=== PATIENT | female | born 1985 | race Caucasian/White ===

== ENCOUNTER → 2017-02-07 | Outpatient (CLI) | payer BC ==
[~2017-02-07] MED LIST: EFF75 PO; ETAN50IN2 SQ; LISI10TA PO; MINO100C22 PO; MULT-506 PO; NORT10CA PO; OXYC-57 PO; SPR25 PO
[2017-02-07 18:17] LABS: BASO % 0.9 %; BASO ABS # 0.07 K/uL (0-0.2); COMPLETE YES; EOS % 2.1 %; HEMATOCRIT 43.4 % (37-47); IG% 0.2 %; LYMPH % 36.2 %; LYMPH ABS # 2.93 K/uL (1.2-3.4); MEAN CELL VOLUME 86.5 fL (80-100); MEAN CORPUSCULAR HEMOGLOBIN 28.9 pg (25-34); MEAN CORPUSCULAR HGB CONC 33.4 g/dl (32-36); MEAN PLATELET VOLUME 9.9 fL (7.4-10.4); MONO % 7.9 %; NEUT % 52.7 %; PLATELET COUNT 423 K/uL (130-400); RED BLOOD COUNT 5.02 M/uL (4.2-5.4)
[2017-02-07 19:19] LABS: ALT/SGPT 29 U/L (12-78); AMYLASE 39 U/L (25-115); AST/SGOT 18 U/L (15-37); BLOOD UREA NITROGEN 12 mg/dl (7-18); BUN/CREATININE RATIO 12.5 (10-20); CALCIUM 9.8 mg/dl (8.5-10.1); CARBON DIOXIDE 25 mmol/L (21-32); CHLORIDE 106 mmol/L (98-107); CREATININE 0.95 mg/dl (0.60-1.20); GLUCOSE 91 mg/dl (70-99); POTASSIUM 4.1 mmol/L (3.5-5.1); SODIUM 141 mmol/L (136-145)
[2017-02-07 19:22] LABS: ALB/GLOB RATIO 1.1 (0.9-2); ALKALINE PHOSPHATASE 79 U/L (45-117)
== END | disposition home or self-care (01) ==
LOC: C.LABSPEC 17:28
PROVIDERS: ATTEND Internal Medicine
DX: R52 Pain, unspecified (principal)

== ENCOUNTER → 2017-02-08 | Outpatient (CLI) | payer BC | END | disposition home or self-care (01) | LOC: C.PAPS 09:32 | PROVIDERS: ATTEND Physician Assistant | DX: Z01.419 Encounter for gynecological examination (general) (routine) without abnormal findings (principal) ==

== ENCOUNTER → 2017-02-09 | Outpatient (CLI) | payer BC ==
--- NOTE | 2017-02-09 09:40 | DIAGNOSTIC IMAGING REPORT ---
ADDENDUM Upon further review of the case, the gallbladder is distended and diffusely stone filled with associated posterior acoustic shadowing and gallbladder wall thickening. Sonographic [place] sign was reported as negative. Correlate clinically to exclude acute cholecystitis. Electronically signed by: Bony Thurston M.D. 04/18/2017 2:33 PM Dictated Date/Time: 04/18/2017 2:32 PM ORIGINAL REPORT BILIARY ULTRASOUND CLINICAL HISTORY: Abdominal pain COMPARISON STUDY: No previous studies for comparison. FINDINGS: The pancreas appear normal as visualized. The liver appears sonographically normal. The gallbladder appears sonographically normal. There was no ductal dilatation. The common bile duct measured 5 mm. There is no right-sided hydronephrosis. There is a suspected 6 mm lower pole right renal calculus. IMPRESSION: 6 mm lower pole right renal calculus. Otherwise normal biliary ultrasound. Electronically signed by: Fili Quach M.D. 02/09/2017 9:38 AM Dictated Date/Time: 02/09/2017 9:37 AM
--- NOTE | 2017-04-18 08:38 | [facility] Operative Report ---
Operative Report Operative Date Apr 18, 2017. Pre-Operative Diagnosis biliary dysk Post-Operative Diagnosis ccc Procedure(s) Performed lap braeden attemted c'gram Surgeon Mikaela Mold Hoister Surgeon(s) Yannick Lagunas Estimated Blood Loss 5cc Findings gall bladder full of stones Drains 19 ludmila per stab Indications ruq pain Description of Procedure lap braeden , attempted c'gram OR summary dictated I attest to the content of the Intraoperative Record and any orders documented therein. Any exceptions are noted below.
== END | disposition home or self-care (01) ==
LOC: C.ULTR 09:05
PROVIDERS: ATTEND Internal Medicine
DX: R10.11 Right upper quadrant pain (principal); N20.0 Calculus of kidney

== ENCOUNTER → 2017-03-27 | Outpatient (CLI) | payer BC ==
[~2017-03-27] MED LIST changes: +SINCALIDE IV ONE; +SODIUM CHLORIDE 0.9% IV ONE
--- NOTE | 2017-03-27 10:27 | DIAGNOSTIC IMAGING REPORT ---
NUCLEAR MEDICINE HEPATOBILIARY SCAN WITH EJECTION FRACTION HISTORY: Generalized abdominal pain. COMPARISON: Abdominal ultrasound 02/09/2017 TECHNIQUE: Immediately following the intravenous administration of 5.5 mCi Tc-99m Choletec, dynamic anterior abdominal imaging pre/post 2.4 mcg of Kinevac was performed. FINDINGS: Uniform hepatic tracer accumulation is shown. Prompt intrahepatic biliary excretion is seen. The gallbladder, common bile duct, and small bowel are all visualized by 35 minutes. This appearance represents the normal sequence of biliary excretion. The gall bladder ejection fraction following administration of Kinevac was 18% (normal >35%). IMPRESSION: 1. No evidence for cystic duct obstruction. 2. Abnormally low gallbladder ejection fraction calculated to be 18 %. Electronically signed by: Epifanio Pritchett M.D. 03/27/2017 10:25 AM Dictated Date/Time: 03/27/2017 10:24 AM
== END | disposition home or self-care (01) ==
LOC: C.NUCL 07:38
PROVIDERS: ATTEND Internal Medicine
DX: R10.11 Right upper quadrant pain (principal)

== ENCOUNTER 2017-04-18 05:10 | Day surgery (SDC) | payer BC ==
[2017-04-14 08:30] VITALS: BMI 41.0
--- NOTE | 2017-04-14 08:54 | PAT Medication Instructions ---
Service Date Apr 14, 2017. Current Home Medication List Etanercept (Enbrel), 50 MG SQ WK Lisinopril (Prinivil), 10 MG PO QAM Minocycline (Minocin), 50 MG PO QAM Multivitamin (Multivitamin), 1 TAB PO QAM Nortriptyline Hcl (Pamelor), 10 MG PO BID Spironolactone (Spironolactone), 25 MG PO QAM Venlafaxine Hcl (Effexor), 75 MG PO QAM Medication Instructions For Your Scheduled Surgery - Check with surgeon/body man for instructions: Etanercept (Enbrel), 50 MG SQ WK (on Sundays for psoriasis) - Hold the following medications the morning of surgery: Spironolactone (Spironolactone), 25 MG PO QAM Multivitamin (Multivitamin), 1 TAB PO QAM Lisinopril (Prinivil), 10 MG PO QAM - Take the following medications the morning of surgery with a sip of water: Venlafaxine Hcl (Effexor), 75 MG PO QAM Nortriptyline Hcl (Pamelor), 10 MG PO BID Minocycline (Minocin), 50 MG PO QAM - Take the following medications as scheduled the night before surgery: Nortriptyline Hcl (Pamelor), 10 MG PO BID If you have any questions please call us at [phone] or [phone] or [phone]
--- NOTE | 2017-04-14 09:32 | DIAGNOSTIC IMAGING REPORT ---
CHEST 2 VIEWS ROUTINE CLINICAL HISTORY: Preoperative chest COMPARISON STUDY: No previous studies for comparison. FINDINGS: The cardiac and mediastinal contours are normal. There is no evidence of focal pulmonary consolidation. There is no evidence of failure. No pleural effusions are visualized.[ IMPRESSION: No active disease in the chest. Electronically signed by: Fili Quach M.D. 04/14/2017 9:31 AM Dictated Date/Time: 04/14/2017 9:31 AM
[2017-04-14 09:44] LABS: BASO ABS # 0.06 K/uL (0-0.2); COMPLETE YES; EOS % 2.2 %; HEMATOCRIT 40.7 % (37-47); IG% 0.3 %; LYMPH % 32.3 %; LYMPH ABS # 1.94 K/uL (1.2-3.4); MEAN CELL VOLUME 85.3 fL (80-100); MEAN CORPUSCULAR HGB CONC 35.1 g/dl (32-36); MEAN PLATELET VOLUME 9.7 fL (7.4-10.4); MONO % 8.3 %; NEUT % 55.9 %; PLATELET COUNT 351 K/uL (130-400); RED BLOOD COUNT 4.77 M/uL (4.2-5.4); WHITE BLOOD COUNT 6.01 K/uL (4.8-10.8)
[2017-04-14 09:49] LABS: BUN/CREATININE RATIO 13.5 (10-20); CALCIUM 9.6 mg/dl (8.5-10.1); CREATININE 0.71 mg/dl (0.60-1.20)
[2017-04-14 09:53] LABS: PREG INTERNAL NEGATIVE QC NEG CLEAR BACKGROUND; PREG INTERNAL POSITIVE QC POS CONTROL LINE
[~2017-04-18] VITALS: Ht 170.2 cm; Wt 120.2 kg
[~2017-04-18 05:10] MED LIST changes: -OXYC-57 PO; -SINCALIDE IV ONE; -SODIUM CHLORIDE 0.9% IV ONE
[2017-04-18 05:28] VITALS: BP 154/89; PULSE 88; TEMP 36.6; O2SAT 100; Ht 170.2 cm; Wt 120.2 kg
[2017-04-18] MEDS ORDERED: ACETAMINOPHEN 1000 MG/100 ML IV IV ONE (06:00)
[2017-04-18] MEDS ORDERED: LACTATED RINGER'S 1000ML 1,000 ML IV SCH ×2 (06:00→08:43)
--- NOTE | 2017-04-18 06:15 | History & Physical Bridge Note ---
H&P Re-Evaluation Bridge Note: I have examined the patient, reviewed the History & Physical and in the interval since the performance of the History & Physical I have noted the following changes of clinical significance: No changes noted family at bedside all questions answered physically signed h and p
[2017-04-18] MEDS ORDERED: DEXAMETHASONE SOD INJ 4 MG/ML VIAL ONE (06:22)
[2017-04-18] MEDS ORDERED: PROPOFOL IV EMULSION 10 MG/ML 20 ML VIAL IV ONE (06:22)
[2017-04-18] MEDS ORDERED: GLYCOPYRROLATE INJ 0.2 MG/ML VIAL ONE (06:22)
[2017-04-18] MEDS ORDERED: LIDOCAINE HCL 2% 2 ML VIAL (20MG/ML) ONE (06:22)
[2017-04-18] MEDS ORDERED: NEOSTIGMINE METHYLSULFATE 5 MG/5 ML SYR ONE (06:22)
[2017-04-18] MEDS ORDERED: ROCURONIUM BROMIDE 10 MG/ML 5 ML VIAL IV ONE (06:22)
[2017-04-18] MEDS ORDERED: ONDANSETRON INJ 2 MG/ML 2 ML VIAL ONE (06:22)
[2017-04-18] MEDS ORDERED: MIDAZOLAM HCL 1 MG/ML 2ML VIAL ONE (06:23)
[2017-04-18] MEDS ORDERED: FENTANYL CITRATE INJ 50 MCG/1 ML 2 ML VIAL ONE ×3 (06:23→09:35)
[2017-04-18] MEDS ORDERED: SUCCINYLCHOLINE 100MG/5ML SYR IV ONE (07:25)
[2017-04-18] MEDS ORDERED: LIDOCAINE/EPINEPHRINE 1% 20 ML VIAL ONE (08:04)
[2017-04-18] MEDS ORDERED: CONRAY 60% 50 ML VIAL ONE (08:05)
[2017-04-18] MEDS ORDERED: KETOROLAC TROMETHAMINE 30 MG/ML VIAL ONE (08:11)
[2017-04-18] MEDS ORDERED: ONDANSETRON INJ 2 MG/ML 2 ML VIAL IV PRN ×2 (08:45→09:15)
[2017-04-18] MEDS ORDERED: OXYCODONE/ACETAMINOPHEN 5-325 TAB PO PRN (08:45)
[2017-04-18] MEDS ORDERED: OXYC-57 PO (08:45)
[2017-04-18] MEDS ORDERED: MoRPHine SULFATE 2 MG/ML CARP IV PRN (08:45)
--- NOTE | 2017-04-18 08:48 | Discharge Instructions ---
Discharge Instructions Date of Service Apr 18, 2017. Visit Reason for Visit: Biliary Dyskinesia Discharge Discharge Diagnosis / Problem: laparoscopic cholecystectomy Discharge Goals Goal(s): Decrease discomfort Activity Recommendations Activity Limitations: as noted below Lifting Limitations: no more than 10 pounds Shower/Bathe: tomorrow Driving or Machine Use: resume 3 days after discharge (if not taking Percoet) Anesthesia . Post Anesthesia Instructions: If you have had General Anesthesia or IV Sedation: * Do not drive today. * Resume driving when surgeon permits. * Do not make important decisions or sign legal documents today. * Call surgeon for: 1. Temperature elevations greater than 101 degrees F. 2. Uncontrollable pain. 3. Excessive bleeding. 4. Persistent nausea and vomiting. 5. Medication intolerance (nausea, vomiting or rash). * For nausea and vomiting use only clear liquids such as: tea, soda, bouillon until nausea subsides, then gradually increase diet as tolerated. * If you have any concerns or questions, call your surgeon's office. If physician is unavailable and it is an emergency, call 911 or go to the nearest emergency room. . Instructions / Follow-Up Instructions / Follow-Up Dr. Al's office in 2-3 days for removal of the drain, call [phone] to schedule Empty drain 2-3 times daily as needed, you can record total daily drainage it is ok to shower with the drain Diet Recommendations Recommended Home Diet: no limitations Procedures Procedures Performed: Laparoscopic Cholecystectomy Attempted cholangiogram Pending Studies Studies pending at discharge: no Medical Emergencies . Who to Call and When: Medical Emergencies: If at any time you feel your situation is an emergency, please call 911 immediately. . Non-Emergent Contact Non-Emergency issues call your: Surgeon Call Non-Emergent contact if: you have a fever, temperature is above 101.5, your pain is not controlled, wound has increased redness, you have any medication questions . . "Provider Documentation" section prepared by Kana Lagunas. .
--- NOTE | 2017-04-18 09:03 | OPERATIVE REPORT ---
DATE OF OPERATION: 04/18/2017 SURGEON: Dr. Al. DRY PRIMER POWDER BLENDER: Gonsalo Lagunas PA-C. PREOPERATIVE DIAGNOSIS: Biliary dyskinesia. POSTOPERATIVE DIAGNOSIS: Cholelithiasis, extensive, completely filled the gallbladder. PROCEDURE: Laparoscopic cholecystectomy, attempted cholangiogram. SUMMARY: The patient was brought into the operating room theater. The abdomen was prepped with Betadine solution and properly draped. The patient had had significant right upper quadrant pain. The only abnormality on her workup was a biliary scan which showed an ejection fraction of 16, but she had had an ultrasound which was read normally. I made a small incision supraumbilically, significant enough to wyatt a Veress needle, followed by a 5 mm trocar. The patient then placed in reverse Trendelenburg position, turned to the left. Under direct visualization, a 5 mm epigastric, two 5 mm subcostal ports were placed. The gallbladder was identified. It had a thick wall, we were able to elevate it up, and actually as we dissected out, the patient had significant amount of inflammatory changes down toward the triangle of Calot, but we could elevate what appeared to be a really large stone embedded in the neck. At this point, we maneuvered our way around and identified 1 structure that was very small, thinking that may have been the cystic duct. We made a small opening and it was the artery, probably an accessory branch of the main artery. We clipped it and eventually we clipped it more. We finally identified posterior to that a small duct which was very small. We tried opening it and we were able to really not see anything as far as coming out, but once we transected it, the duct may have been about 2 mm in size which was compatible with the cystic duct. In fact, we had a cholangiocath already placed in the abdomen. I did try to do a cholangiogram but we were really unsuccessful even to try to attempt to place the catheter in this area. We doubly clipped the cystic duct and divided. Then, we took the gallbladder, elevating the neck which was quite redundant with a large stone in there, identifying the anterior branch of the artery. The posterior branch was actually coursing along the gallbladder fossa, half way up into the liver, and we were able then to clip that and divide. The gallbladder was removed in the antegrade fashion all the way to top of liver. Before freeing it up from the liver, we suctioned out the subhepatic area, made sure hemostasis was satisfactory. Gallbladder was placed in an Endopouch and it took quite a bit to get it out of the abdominal wound with 5 mm opening in the epigastric area. We actually enlarged significantly so that we can extract the gallbladder and its contents completely through that area. The patient had significant amount of stones. We actually took a picture of this because the ultrasound read as negative. The subhepatic and suprahepatic area was then checked for hemostasis and appeared satisfactory. We placed a camera in the subcostal port to visualize the umbilical opening. There were no adhesions in that area identified. Due to the extent of the dissection, had significant inflammation that chronically she had in the area. I elected to drain the area with a Jose drain which was brought in subhepatic and taken out lateral to the subcostal port, attached to skin edge with 2-0 silk. The wounds were closed with fascial stitches of 0 Vicryl for the epigastric area that we enlarged, the other ones with 4-0 Monocryl. Steri-Strips applied. The procedure was tolerated well by the patient. Estimated blood loss approximately 5 mL. The patient was taken to recovery room in good condition. I attest to the content of the Intraoperative Record and any orders documented therein. Any exceptions are noted below. GADIEL
[2017-04-18] MEDS ORDERED: EpHEDrine SULFATE INJ 50 MG/ML AMP IV PRN (09:15)
[2017-04-18] MEDS ORDERED: LABETALOL HCL IV 5 MG/ML 20ML IV PRN (09:15)
[2017-04-18] MEDS ORDERED: FENTANYL CITRATE INJ 50 MCG/1 ML 2 ML VIAL IV PRN (09:15)
[2017-04-18] MEDS ORDERED: NALOXONE HCL 0.4 MG/1 ML VIAL/CARP IV PRN (09:15)
[2017-04-18] MEDS ORDERED: PROMETHAZINE HCL INJ 12.5 MG in SODIUM CHLORIDE 0.9% 50ML 50 ML IV PRN (09:15)
[2017-04-18] MEDS ORDERED: ATROPINE SULFATE 0.1 MG/ML 5ML SYR IV PRN (09:15)
[2017-04-18] MEDS ORDERED: FLUMAZENIL 0.1 MG/1 ML 10 ML VIAL IV PRN (09:15)
--- NOTE | 2017-04-18 09:20 | Anesthesiology Progress Note ---
Anesthesia Post Op Note Date & Time Apr 18, 2017 at 09:20 Vital Signs Pain Intensity: 1 Vital Signs Past 12 Hours Date Time Temp Pulse Resp B/P (MAP) Pulse Ox O2 Delivery O2 Flow Rate FiO2 04/18/17 09:15 127/87 04/18/17 09:13 76 23 96 04/18/17 09:13 77 23 04/18/17 09:10 129/82 04/18/17 09:08 77 26 04/18/17 09:08 77 26 97 04/18/17 09:06 37.2 77 22 130/81 97 Room Air 04/18/17 09:05 130/81 04/18/17 09:03 79 25 04/18/17 09:03 81 25 97 04/18/17 09:02 76 25 97 04/18/17 09:02 77 25 04/18/17 09:00 133/89 04/18/17 08:57 77 26 100 04/18/17 08:57 77 26 04/18/17 08:56 80 23 04/18/17 08:56 80 23 100 04/18/17 08:55 131/86 04/18/17 08:51 72 27 04/18/17 08:51 72 27 100 04/18/17 08:50 132/83 04/18/17 08:46 73 23 100 04/18/17 08:46 74 23 04/18/17 08:45 134/78 04/18/17 08:41 78 28 04/18/17 08:41 36.9 79 20 123/81 100 Mask 10 04/18/17 08:41 78 28 123/81 100 04/18/17 05:28 36.6 88 18 154/89 (110) 100 Room Air Notes Mental Status: alert / awake / arousable, participated in evaluation Pt Amnestic to Procedure: Yes Nausea / Vomiting: adequately controlled Pain: adequately controlled Airway Patency, RR, SpO2: stable & adequate BP & HR: stable & adequate Hydration State: stable & adequate Anesthetic Complications: no major complications apparent
[2017-04-18 09:34] VITALS: BP 118/74; PULSE 75; TEMP 36.4; O2SAT 98
[2017-04-18] MEDS ORDERED: OXYCODONE/ACETAMINOPHEN 5-325 TAB ONE (09:46)
[2017-04-18 10:04] VITALS: BP 112/72; PULSE 81; O2SAT 97
[2017-04-18 10:34] VITALS: BP 122/76; PULSE 76; O2SAT 97
== END 2017-04-18 10:34 | disposition home or self-care (01) ==
LOC: C.ACU 05:10
PROVIDERS: ATTEND Surgery
DX: K80.10 Calculus of gallbladder with chronic cholecystitis without obstruction (principal); Z82.49 Family history of ischemic heart disease and other diseases of the circulatory system; Z82.2 Family history of deafness and hearing loss; Z80.41 Family history of malignant neoplasm of ovary

== ENCOUNTER → 2018-04-04 | Outpatient (CLI) | payer BC ==
[~2018-04-04] MED LIST changes: +SPIR25TA6 PO; -SPR25 PO
[2018-04-04 13:36] LABS: BASO % 0.7 %; BASO ABS # 0.05 K/uL (0-0.2); EOS % 1.6 %; EOS ABS # 0.12 K/uL (0-0.5); HEMATOCRIT 40.7 % (37-47); HEMOGLOBIN 13.7 g/dL (12.0-16.0); IG# 0.01 K/uL (0.00-0.02); LYMPH % 38.2 %; LYMPH ABS # 2.92 K/uL (1.2-3.4); MEAN CELL VOLUME 87.7 fL (80-100); MEAN CORPUSCULAR HEMOGLOBIN 29.5 pg (25-34); MEAN CORPUSCULAR HGB CONC 33.7 g/dl (32-36); MEAN PLATELET VOLUME 10.3 fL (7.4-10.4); MONO % 7.5 %; MONO ABS # 0.57 K/uL (0.11-0.59); NEUT % 51.9 %; NEUT ABS # 3.97 K/uL (1.4-6.5); PLATELET COUNT 374 K/uL (130-400); RED CELL DISTRIBUTION WIDTH CV 13.7 % (11.5-14.5); WHITE BLOOD COUNT 7.64 K/uL (4.8-10.8)
[2018-04-04 13:49] LABS: ALBUMIN 3.9 gm/dl (3.4-5.0); ALKALINE PHOSPHATASE 82 U/L (45-117); ALT/SGPT 32 U/L (12-78); AST/SGOT 21 U/L (15-37); BLOOD UREA NITROGEN 10 mg/dl (7-18); CARBON DIOXIDE 25 mmol/L (21-32); CHOLESTEROL 179 mg/dl (0-200); CREATININE 0.76 mg/dl (0.60-1.20); GLUCOSE 75 mg/dl (70-99); LDL CHOLESTEROL (DIRECT) 124 mg/dl; POTASSIUM 4.1 mmol/L (3.5-5.1); SODIUM 137 mmol/L (136-145)
== END | disposition home or self-care (01) ==
LOC: C.LABSPEC 13:09
PROVIDERS: ATTEND Internal Medicine
DX: I10 Essential (primary) hypertension (principal); E66.01 Morbid (severe) obesity due to excess calories; E78.5 Hyperlipidemia, unspecified